=== PATIENT | female | born 1985 | race African-American/Black ===

== ENCOUNTER 2023-01-19 20:36 | Emergency (ER) | payer MEDICAID ==
[~2023-01-19] VITALS: Ht 170.2 cm; Wt 70.8 kg
[2023-01-19 21:00] VITALS: BP 132/75; TEMP 98; O2SAT 98
[2023-01-19] MEDS ORDERED: IBUPROFEN 400 MG TABLET PO ONE (21:30)
[2023-01-19] MEDS ORDERED: IBUPROFEN 400 MG TABLET ONE (21:48)
== END 2023-01-19 22:02 | disposition home or self-care (01) ==
LOC: ER 20:40
DX: S63.502A Unspecified sprain of left wrist, initial encounter (principal); W20.8XXA Other cause of strike by thrown, projected or falling object, initial encounter; Y93.89 Activity, other specified; Y92.89 Other specified places as the place of occurrence of the external cause; Y99.8 Other external cause status
CPT/HCPCS: 73110

== ENCOUNTER 2023-03-23 13:07 | Emergency (ER) | payer MEDICAID, OTHER ==
[~2023-03-23] VITALS: Ht 170.2 cm; Wt 73.5 kg
[~2023-03-23 13:07] MED LIST: TRAZ-257 PO
[2023-03-23 13:13] VITALS: BP 138/62; TEMP 98.7; O2SAT 100
[2023-03-23] MEDS ORDERED: TRAZ-257 PO (14:23)
== END 2023-03-23 14:32 | disposition home or self-care (01) ==
LOC: ER 13:14
DX: Z76.0 Encounter for issue of repeat prescription (principal); Z79.899 Other long term (current) drug therapy; Z60.2 Problems related to living alone

== ENCOUNTER 2023-05-18 13:35 | Emergency (ER) | payer OTHER ==
[~2023-05-18] VITALS: Ht 170.2 cm; Wt 72.6 kg
[2023-05-18 13:58] VITALS: BP 104/71; TEMP 98.3
[2023-05-18] MEDS ORDERED: ARIP15TA3 PO (14:42)
[2023-05-18] MEDS ORDERED: TRAZ-182 PO (14:42)
[2023-05-18 14:49] VITALS: O2SAT 96
== END 2023-05-18 14:50 | disposition home or self-care (01) ==
LOC: ER 13:41
DX: Z76.0 Encounter for issue of repeat prescription (principal); F99 Mental disorder, not otherwise specified; G47.00 Insomnia, unspecified; F32.A Depression, unspecified; Z60.2 Problems related to living alone

== ENCOUNTER → 2023-11-27 | Emergency (ER) | payer OTHER ==
[~2023-11-27] MED LIST changes: +ARIP15TA3 PO; +TRAZ-182 PO
== END | disposition left against medical advice (07) ==
LOC: ER 23:53
DX: S89.90XA Unspecified injury of unspecified lower leg, initial encounter (principal); Z53.21 Procedure and treatment not carried out due to patient leaving prior to being seen by health care provider; X58.XXXA Exposure to other specified factors, initial encounter; Y93.89 Activity, other specified; Y92.89 Other specified places as the place of occurrence of the external cause; Y99.8 Other external cause status